=== PATIENT | male | born 1995 | race Caucasian/White ===

== ENCOUNTER 2018-07-24 10:01 | Emergency (ER) | payer OTHER ==
--- NOTE | 2018-07-24 10:18 | EDPHY ---
H & P Time Seen by Provider: 07/24/18 10:14 HPI/ROS: CHIEF COMPLAINT: Left knee pain post slip on ice HISTORY OF PRESENT ILLNESS: 22-year-old male generally healthy with up-to-date tetanus was running last evening, slipped on ice landed on his left knee. Complaining of reproducible pain to the anteromedial aspect the left knee. He is able to bear weight albeit with pain. No proximal distal pain or injury. No head injury. PHYSICAL EXAM (Prior to examination, patient consented to physical exam, hands were washed and my usual and customary physical exam procedures followed) 1) GENERAL: Well-developed, well-nourished, alert and oriented. Appears to be in no acute distress. 2) HEAD: Normocephalic 3) HEENT: Pupils equal, round, reactive to light bilaterally. 4) LUNGS: Breathing comfortably. 5) MUSCULOSKELETAL: Exam of the left knee shows abrasion to the left anteromedial aspect with associated tenderness at same location. . Compartments are soft. 6) SKIN: Abrasion to the anteromedial aspect of the knee 7) VASCULAR: DP,PT pulses and cap refill present and brisk distally DIFFERENTIAL DIAGNOSIS: in no particular order including but not limited to fracture, sprain, compartment syndrome, septic arthritis, DVT Procedure: Crutches indications for crutch use discussed with patient. Patient fitted for crutches by ER staff. Observed ambulating with crutches. I think the patient has the capacity to safely use crutches. Usual and customary crutch walking precautions provided Procedure: Splint A knee immobilizer splint was applied by ER fuel conversion technician. After application of the splint I returned and re-examined the patient. The splint was adequately immobilizing the joint and distal to the splint the patient's circulation and sensation were intact. Patient shows no signs of compartment syndrome. Was given orthopedic precautions. MEDICAL DECISION MAKING Serial evaluations performed on patient. Discussed his x-ray showing no definitive acute osseous abnormality. I discussed the limitations of x-ray in diagnosis of knee pain and injury. At this time I do not think that emergent MRI is currently indicated. However, I have recommended follow-up with Orthopedic surgery and provided this referral information. Informed the patient that outpatient MRI may be indicated. Doubt septic arthritis. Doubt compartment syndrome. Doubt DVT.Given orthopedic referral. My usual and customary orthopedic precautions instructions provided. Care of patient under supervision of primary Supervising physician Dr Barber with whom I discussed case. Constitutional: Initial Vital Signs Temperature (C) 37 C 07/24/18 10:19 Heart Rate 85 07/24/18 10:19 Respiratory Rate 16 07/24/18 10:19 Blood Pressure 132/75 H 07/24/18 10:19 O2 Sat (%) 95 07/24/18 10:19 O2 Delivery Mode Room Air Allergies/Adverse Reactions: No Known Allergies Allergy (Unverified 07/24/18 10:16) Home Medications: Medication Instructions Recorded Bupropion Xl 07/24/18 MDM/Departure - MDM Imaging Results: Imaging Impressions Knee X-Ray 07/24/18 10:16 Impression: Negative. No acute fracture or effusion. Images reviewed myself - Depart Disposition: Home, Routine, Self-Care Clinical Impression: Left knee injury Qualifiers: Encounter type: initial encounter Qualified Code(s): S89.92XA - Unspecified injury of left lower leg, initial encounter Condition: Good Instructions: Knee Sprain (ED) Additional Instructions: Return to the ER immediately if you experience discoloration, have worsening pain, numbness, tingling, or any other symptoms that concern you. If you received x-rays in the emergency department today, be advised, that ligamentous , tendon, muscular, and other non-bony injury cannot be fully ruled out. Try to keep your affected extremity elevated above the level of your chest, and keep cold packs on the affected area, for the next 48 hours. Adult Pain & Fever Control: We recommend Acetaminophen (Tylenol) and Ibuprofen (Motrin,Advil) for pain and fever control. When fever is high or pain severe, both drugs can be used at the same time, but at different intervals. Please note the time differences. Your dose is: Acetaminophen 650mg every 4 to 6 hours Ibuprofen 600mg every 6 hours with food OR Note: do not take Acetaminophen with Hydrocodone (Vicodin, Lortab) or Oycodone (Percocet). These medications also contain Acetaminophen. No more than 3000mg of Acetaminophen should be taken in 24 hours (for an adult). Stand Alone Forms: Work Excuse Referrals: Eulogio Kruse MD [Medical Doctor] - 2-3 days, call for appt. (Dr. Eulogio Kruse is orthopedic surgeon)
[2018-07-24 11:07] VITALS: BP 132/67
[2018-07-24] MEDS ORDERED: IBUPROFEN 600 MG TAB PO ONE (11:24)
== END 2018-07-24 11:27 | disposition home or self-care (01) ==
DX: S89.92XA Unspecified injury of left lower leg, initial encounter (principal); W00.0XXA Fall on same level due to ice and snow, initial encounter; Y92.9 Unspecified place or not applicable; Y99.9 Unspecified external cause status; Y93.02 Activity, running
CPT/HCPCS: L1830